=== PATIENT | female | born 1950 ===

== ENCOUNTER 2021-02-25 17:23 | Inpatient (IN) | payer MEDICARE, MEDICAID ==
[~2021-02-25] VITALS: Ht 149.9 cm; Wt 58.7 kg
[2021-02-25] MEDS ORDERED: ALLERGY RELIEF PO (17:44)
[2021-02-25] MEDS ORDERED: TYLENOL ARTHRI650 MG PO (17:44)
[2021-02-25] MEDS ORDERED: INHALER (17:44)
[2021-02-25] MEDS ORDERED: K-TAB10 MEQ PO (17:45)
[2021-02-25] MEDS ORDERED: ESTRACE1 MG PO (17:45)
[2021-02-25] MEDS ORDERED: NEXIUM40 MG PO (17:45)
[2021-02-25] MEDS ORDERED: SEROQUEL XR150 MG PO (17:46)
[2021-02-25] MEDS ORDERED: VASOTEC5 MG PO (17:46)
[2021-02-25] MEDS ORDERED: SYNTHROID150 MCG PO (17:46)
[2021-02-25] MEDS ORDERED: SEROQUEL300 MG PO (17:47)
[2021-02-25] MEDS ORDERED: LASIX40 MG PO (17:47)
[2021-02-25] MEDS ORDERED: NORVASC10 MG PO (17:47)
[2021-02-25] MEDS ORDERED: ASPIRIN81 MG PO (17:48)
[2021-02-25] MEDS ORDERED: CYCLOBENZAPRINE10 MG PO (17:48)
[2021-02-25] MEDS ORDERED: CRESTOR40 MG PO (17:48)
[2021-02-25] MEDS ORDERED: VISTARIL50 MG PO ×2 (17:50→23:59)
[2021-02-25 18:16] LABS: BASOPHILS 0.3 % (0-2); EOSINOPHILS 6.8 % (0-7); HEMATOCRIT 39.9 % (36.0-48.0); HEMOGLOBIN 13.3 g/dL (12-16); IMMATURE GRANULOCYTES 0.2 % (0-5); LYMPHOCYTE ABS# 3.31 10x3/uL (1.18-3.74); LYMPHOCYTES 37.6 % (15-50); MCH 28.8 pg (26.0-34.0); MCHC 33.3 g/dL (31.0-37.0); MCV 86.4 fL (80.0-100.0); MEAN PLATELET VOLUME 9.2 fL (7.4-10.4); NEUTROPHILS 42.1 % (40-80); PLATELET COUNT 249 10x3/uL (130-400); RBC 4.62 10x6/uL (4.00-5.40); RDW 13.1 % (11.5-14.5); WBC 8.8 10x3/uL (4.8-10.8)
[2021-02-25 18:16] LABS: BILIRUBIN NEGATIVE (NEGATIVE); KETONE NEGATIVE (NEGATIVE); NITRITE NEGATIVE (NEGATIVE); UROBILINOGEN NORMAL mg/dL (< 2)
[2021-02-25 18:23] LABS: ANION GAP 12.7 mmol/L (8-16); CALCIUM 9.3 mg/dL (8.5-10.1); CARBON DIOXIDE 26.5 mmol/L (21.0-32.0); CREATININE - SERUM 0.9 mg/dL (0.6-1.3); POTASSIUM - SERUM 4.2 mmol/L (3.5-5.1)
[2021-02-25 18:26] LABS: UDS - AMPHET NEGATIVE QUAL (NEGATIVE); UDS - BARB NEGATIVE QUAL (NEGATIVE); UDS - BENZO NEGATIVE QUAL (NEGATIVE); UDS - COCAINE NEGATIVE QUAL (NEGATIVE); UDS - OPIATE NEGATIVE QUAL (NEGATIVE); UDS - PCP NEGATIVE QUAL (NEGATIVE); UDS - THC NEGATIVE QUAL (NEGATIVE)
[2021-02-25 18:29] LABS: ALBUMIN 3.2 g/dL (3.4-5.0); BILIRUBIN - TOTAL 0.2 mg/dL (0.2-1.3); MAGNESIUM - SERUM 1.9 mg/dL (1.8-2.4); PROTEIN - SERUM 7.1 g/dL (6.4-8.2)
--- NOTE | 2021-02-25 19:20 | NUR ---
PATIENT STANDING UP AT BEDSIDE. NO S/S OF ACUTE DISTRESS NOTED. COVID SWAB OBTAINED AND SENT TO LAB. PT REQUESTING TO GO OUTSIDE AND SMOKE. PT ADVISED THAT SHE CAN NOT EXIT THE ED. RN NOTIFIED PA, ORDER FOR NICOTINE PATCH GIVEN.
[2021-02-25 20:00] VITALS: BP 124/55; BP 181/89
[2021-02-25 20:16] LABS: SARS-CoV-2 ANTIGEN NEGATIVE- SARS-COV-2 (NEGATIVE)
--- NOTE | 2021-02-25 20:35 | NUR ---
REPORT CALLED TO TIFFANIE IN ALF.
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
[2021-02-25 22:48] VITALS: BP 181/89; BMI 26.3
[2021-02-25] MEDS ORDERED: SYMBICORT 16010.2 GM INH (23:42)
[2021-02-25] MEDS ORDERED: ALBUTEROL2.5 MG/3 M INH (23:45)
[2021-02-26] MEDS ORDERED: SYNTHROID150 MCG PO (00:11)
[2021-02-26] MEDS ORDERED: XALATAN 0.0052.5 ML LEFT EYE (00:12)
[2021-02-26] MEDS ORDERED: NITROSTAT0.4 MG SL (00:14)
[2021-02-26 08:00] VITALS: BP 115/61
[2021-02-26 08:54] LABS: CHOL - HDL RATIO 2.9 ratio (2.3-4.1); CHOLESTEROL, TOTAL 127 mg/dL (0-200); HDL CHOLESTEROL 44 mg/dL (32-96); LDL CHOLESTEROL 59 mg/dL (0-100); LDL-HDL RATIO 1.3 ratio (1.5-3.5); TRIGLYCERIDE 121 mg/dL (30-200)
[2021-02-26 08:56] LABS: THYROID STIMULATING HORMONE < 0.01 uIU/mL (0.36-3.74)
--- NOTE | 2021-02-26 19:17 | NUR ---
NURSE CALLED ARON Kaur APRN TO REPORT C/O OF HER EYES POUNDING AND A HEADACHE. NEW ORDER: RESTART ENALAPRIL 5 MG BID. WILL ADMINSTER MEDICATION WHEN AVALIABLE.
[2021-02-26 20:00] VITALS: BP 202/77
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
[2021-02-27 06:47] LABS: T4 THYROXIN - FREE 2.48 ng/dL (0.76-1.46)
[2021-02-27 07:30] VITALS: BP 113/54
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
--- NOTE | 2021-02-27 10:45 | NUR ---
LIBRIUM 25MG BID CLARIFIED AND VERIFIED WITH Anabelle JUSTICE APRN BEFORE ADMINISTERED.
--- NOTE | 2021-02-27 19:53 | NUR ---
RECEIVED IN HALLWAY. UPSET WITH HER PEERS BEHAVIORS, YELLING AND RESTLESSNESS. CALM AND COOPERATIVE WITH CARE AND ASSESSMENT. NO DELUSIONAL STATEMENTS VOICED. REDIRECT AND REORIENT NEEDED. CONTINUES TO SIT CALMLY IN HALLWAY. CONTINUE PLAN OF CARE.
[2021-02-27 20:00] VITALS: BP 154/76
--- NOTE | 2021-02-28 07:30 | NUR ---
REC'D PT IN HALLWAY SITTING IN CHAIR BY THE NURSES STATION. AWAKE AND ALERT X 3. PRESCRIBED MEDICATIONS PROVIDED ORDERED. MED COMPLIANT. NO BEHAVIORS NOTED AT THIS TIME. REDIRECT AND REORIENT NEEDED. FALL PRECAUTIONS IN PLACE FOR SAFETY. WILL CPOC.
[2021-02-28 08:21] VITALS: BP 111/72
[2021-02-28 14:53] VITALS: Ht 149.9 cm; Wt 58.7 kg
[2021-02-28 20:00] VITALS: BP 147/77
--- NOTE | 2021-02-28 23:16 | NUR ---
RECEIVED IN BEDROOM. RESTING IN BED WITH EYES OPEN. CALM AND COOPERATIVE WITH CARE AND ASSESSMENT. NO DELUSIONAL STATEMENTS VOICED THIS PM. REDIRECT AND REORIENT NEEDED. RESTING IN BED WITH EYES CLOSED AT THIS TIME. CONTINUE PLAN OF CARE.
--- NOTE | 2021-03-01 14:31 | NUR ---
RECEIVED PATIENT SITTING IN CHAIR IN HALLWAY BY NURSES STATION. PATIENT IS SOCIALIZING WITH OTHER PATIENTS AT THIS TIME. CALM AND COOPERATIVE WITH ASSESSMENT. AWAKE AND ALERT TO PERSON PLACE AND TIME. PRESCRIBED MEDICATIONS PROVIDED ORDERED. MED COMPLIANT. NO AGGRESSION NOTED AT THIS TIME. NO HALLUCINATIONS NOTED AT THIS TIME. NO PARANOIA NOTED AT THIS TIME. PATIENT'S MOOD IS PLEASANT. REDIRECT AND REORIENT NEEDED. FALL PRECAUTIONS IN PLACE FOR SAFETY. WILL CPOC.
[2021-03-01 20:00] VITALS: BP 169/96
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
[2021-03-02 08:19] VITALS: BP 110/76
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
--- NOTE | 2021-03-02 13:03 | NUR ---
PT UPSET AND PACING AT THIS TIME. TEARFUL, PACING. STATED SHE DID NOT LIKE THE OTHER NURSE FACE AND SHE IS RUDE. SHE STATED SHE WONT LET ME DO ANYTHING. I DONT LIKE HER. NURSE OFFERED ATIVAN TO CALM PTS NERVES AT THIS TIME. NURSE WILL OBTAIN THE MEDICATIONS.
--- NOTE | 2021-03-02 13:23 | NUR ---
NURSE ADMINISTERED HALDOL 2 MG AND ATIVAN 0.[address] ZAVALA ORDER. PT WAS PACING, ANXIOUS ABOUT THE OTHER NURSE NOT ALLOWING HER DO ANYTHING WITH THE PTS. PT IS INTRUSIVE WITH OTHER PTS CARE AND DOES NOT UNDERSTAND THAT STAFF ONLY TAKES CARE OF THE PTS. WILL REASSESS FOR EFFECTIVENESS.
--- NOTE | 2021-03-02 14:23 | NUR ---
prn effecitive at this time.
--- NOTE | 2021-03-02 15:02 | NUR ---
Nutrition Re-Assessment Diet: Regular PO intake: 90-100% x all meals Last BM: 02/28/21 x 2 Wt: 130# (02/28/21); Admit Wt: 130# (02/25/21) Meds noted: micro-k, lasix Labs reviewed Estimated nutrition needs: 1475-1775cal (25-30kcal/kg Act), 47-59gms protein (0.8-1gms/kg), 1475-1775mL fluid (or per MD) Nutrition diagnosis: Potential for inadequate energy intake r/t PHMx and AMS. Nutrition goals: -PO intake =/>65% meals and snacks -Meet fluid needs -Stable weight DHS Recommendations/Interventions: -Recommend continue current diet. Will continue to honor food preferences. -RD will follow-up within 7 days.
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
--- NOTE | 2021-03-02 17:15 | NUR ---
pt friend called wanting to talk to pt at this time. nurse took name and number for pt to determine if pt wanted to speak with person. nurse gave message to pt.
[2021-03-02 20:00] VITALS: BP 145/72
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
[2021-03-03 09:17] VITALS: BP 142/74
--- NOTE | 2021-03-03 16:20 | NUR ---
pt sitting socializing with others at this time. pt is calm and cooperative at this time. pt is alert to person, place, time. pt is disoriented to situation per delusions. pt can very verbal and withdrawn at times. pt can be very helpful with staff conts to redirect situation. ambulates. can make needs known. no aggressive noted. conts to talk about stolen identity. will cont plan of care.
[2021-03-03 19:27] VITALS: BP 137/62; BP 211/67
[2021-03-03 22:29] VITALS: BP 174/76
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
[2021-03-04 08:48] VITALS: BP 134/65
[2021-03-04] MEDS ORDERED: ENTRESTO 24 MG1 EACH PO (10:30)
[2021-03-04] MEDS ORDERED: FEXOFENADINE HC60 MG PO (10:30)
[2021-03-04] MEDS ORDERED: SEROQUEL XR50 MG PO (10:31)
[2021-03-04] MEDS ORDERED: MOBIC7.5 MG PO (10:31)
[2021-03-04] MEDS ORDERED: PERFOROMIS20 MCG/21 UPD (11:14)
[2021-03-04] MEDS ORDERED: NICODERM CQ1 EAC2 TRANSDERM (11:14)
--- NOTE | 2021-03-04 14:02 | NUR ---
PT SITTING ON COUCH WITH ANOTHER PEER. PT IS CALM AND COOPERATIVE. ALERT TO PERSON,PLACE TIME. PT IS COMPLIANT WITH CURRENT MEDICATION DOSES. NO DELUSIONAL NOTED THIS SHIFT. CAN MAKE ALL NEEDS KNOWN. ADLS INDEPENDENT. NO BEHAVIORS NOTED. WILL CONT PLAN OF CARE.
--- NOTE | 2021-03-04 15:21 | NUR ---
paperwork sent to Dr. Bueno office via fax. pt friend Michael Carter and niece came to pick pulling machine tender pt at this time. nurse went over paperwork including appts, AA meetings, behavior health at [place] and medication list. pt stated and was adamant she had not drank ETOH in 32 years. nurse cont to redirect pt thoughts processes to pt appts scheduled. 2x staff members walked pt to d/c car. patch removed for Nicotine. all personal belongings sent with pt and all paperwork signed per pt belongings brought from ER and signed for. pt tolerated very well.
== END 2021-03-04 15:20 | disposition home or self-care (01) | DRG 885 ==
LOC: D.ER 17:23 → D.PSYCH 19:23
PROVIDERS: Family Medicine; ADMIT Psychiatry & Neurology Psychiatry; ATTEND Psychiatry & Neurology Psychiatry
DX: F31.2 Bipolar disorder, current episode manic severe with psychotic features (principal); K92.2 Gastrointestinal hemorrhage, unspecified; C18.9 Malignant neoplasm of colon, unspecified; I11.0 Hypertensive heart disease with heart failure; I50.9 Heart failure, unspecified; I25.10 Atherosclerotic heart disease of native coronary artery without angina pectoris; F41.8 Other specified anxiety disorders; J43.9 Emphysema, unspecified; K21.9 Gastro-esophageal reflux disease without esophagitis; G47.00 Insomnia, unspecified; E05.90 Thyrotoxicosis, unspecified without thyrotoxic crisis or storm; J30.1 Allergic rhinitis due to pollen; M50.30 Other cervical disc degeneration, unspecified cervical region; M51.36 Other intervertebral disc degeneration, lumbar region; H40.9 Unspecified glaucoma; E78.5 Hyperlipidemia, unspecified; F17.200 Nicotine dependence, unspecified, uncomplicated; Z86.11 Personal history of tuberculosis; I25.2 Old myocardial infarction